=== PATIENT | female | born 1940 | race Caucasian/White ===

== ENCOUNTER 2018-05-28 10:10 | Emergency (ER) | payer MEDICARE, SELFPAY ==
[2018-05-28 10:12] VITALS: BP 161/73; PULSE 69; RESP 17; TEMP 37.3; O2SAT 98; BMI 21.7
[2018-05-28] MEDS: Smz/Tmp Ds Tablet 1 TABLET PO (11:02)
--- NOTE | 2018-05-28 11:09 | ED.VISSUMM ---
- ER Visit Summary Date of Service: 05/28/18 Chief Complaint: [right toe wound] History of Present Illness: The patient is a 78 F [that presents with a chronic wound on her right foot. She states she had an x-ray ordered by her primary doctor 2 days ago. She has an upcoming appointment with a ore charger in 2 days. The wound has been present on her right third digit for about 1 month. She denies any nausea, vomiting, fever, or constitutional symptoms. She has a remote history of MRSA. She overall appears well and nontoxic. She has been doing topical treatment for the wound ordered by wound care and her primary doctor. She has no other complaints.] Physical Examination: [General: The patient appears well and in no apparent distress. Patient is resting comfortably on cart. Skin: Warm, dry, no pallor noted. No rash. Head: Normocephalic, atraumatic Neck: Supple, nontender. Cardiovascular: Regular Rate and Rhythm, no gallups or rubs Respiratory: Patient is in no distress, no accessory muscle use, lungs are clear to auscultation, no wheezing, rales or rhonchi Musculoskeletal: normal ROM, no deformity, no bony tenderness, no swelling. Chronic appearing wound distal right foot third digit with erythema over the dorsal aspect of the digit consistent with cellulitis. No drainage or crepitus. No lymphangitic streaking. 2+ radial and DP pulses symmetric. GI: No tenderness to palpation, no masses appreciated. No rebound, guarding, or rigidity noted. Neurological: A&O, normal strength and sensation. Psychiatric: Cooperative] Test Results: [none] Emergency Department Course and Treatment: [I reviewed her outpatient x-ray that the radiologist interpreted as potential osteolysis. I do not feel blood work or further imaging is indicated here at this time. She has an upcoming podiatry appointment and can be scheduled for an outpatient MRI to evaluate for possible osteomyelitis. She will be placed on a course of Bactrim for the cellulitis and was given a dose of [place] here for pain. She will be written a short prescription for analgesic and antibiotic and we did apply a dressing in postoperative shoe here in the emergency department. She was instructed to return with any new or worsening symptoms. Patient and family understand and are agreeable with this plan of care. Patient was discharged home in stable condition.] Treatment Plan: [see above] Disposition: [discharge home, stable condition] Impression: [Cellulitis right foot 3rd digit with chronic wound] This note was generated with [employer] dictation software. It may contain incorrect words, spelling, and punctuation that were not noted in review of the chart prior to signing ED Disposition - Plan for ED Patient: Disposition: Home or Assisted Living Chief Complaint: Wound Instructions: Recognizing and Treating Wound Infection Prescriptions: Oxycodone HCl/Acetaminophen [Percocet 5/325] 1 tab PO Q6H PRN PRN 3 Days #12 tab PRN Reason: Pain Smz/Tmp Ds [Bactrim Ds] 1 tab PO BID #14 tab Referrals: Waqas Canada MD [Primary Care Provider] - Additional Instructions: Keep your scheduled podiatry appointment.
== END 2018-05-28 11:29 | disposition home or self-care (01) ==
PROVIDERS: Emergency Provider Emergency Medicine; Family Provider Family Medicine; PCP Family Medicine
DX: L03.115 Cellulitis of right lower limb (principal); S91.104A Unspecified open wound of right lesser toe(s) without damage to nail, initial encounter; X58.XXXA Exposure to other specified factors, initial encounter; Y93.9 Activity, unspecified; Y92.9 Unspecified place or not applicable; Y99.9 Unspecified external cause status; I25.10 Atherosclerotic heart disease of native coronary artery without angina pectoris; M16.0 Bilateral primary osteoarthritis of hip; M17.0 Bilateral primary osteoarthritis of knee; Z79.02 Long term (current) use of antithrombotics/antiplatelets; Z79.82 Long term (current) use of aspirin; Z79.899 Other long term (current) drug therapy; I25.2 Old myocardial infarction; Z86.14 Personal history of Methicillin resistant Staphylococcus aureus infection
CPT/HCPCS: 99283

== ENCOUNTER 2018-05-30 15:15 | Outpatient (RCR) | payer MEDICARE, SELFPAY ==
[2018-05-24 10:44] VITALS: BP 190/68; PULSE 60; RESP 18; TEMP 36.7; BMI 21.7
--- NOTE | 2018-05-24 12:41 | PCM.WC.HP ---
(1) Ischemic toe ulcer Status: Acute Current Visit: Yes Code(s): L97.509 - Non-pressure chronic ulcer of other part of unspecified foot with unspecified severity (2) Chronic toe ulcer Status: Chronic Current Visit: Yes Code(s): L97.509 - Non-pressure chronic ulcer of other part of unspecified foot with unspecified severity (3) CAD (coronary artery disease) Status: Chronic Current Visit: Yes Code(s): I25.10 - Atherosclerotic heart disease of [place] coronary artery without angina pectoris (4) Small vessel vasculitis Status: Chronic Current Visit: Yes Code(s): I77.6 - Arteritis, unspecified (5) Small vessel disease Status: Acute Current Visit: Yes Code(s): I99.9 - Unspecified disorder of circulatory system History of Present Illness Date of Service: 05/24/18 Chief Complaint: Bilateral toe ulcers. Discolration of right 3 rd toe. History of Wound: Ms. Hastings is a 78yo with a very complex past medical history who presents to the wound center due to nonhealing to ulcers. Initial ulcer was of the left great toe she has applied Aquacel silver with some improvement however about 3-4 weeks ago she noted an ulcer on the tip of her right third toe. She denies any history of trauma. She also subsequently noted discoloration/darkening of her toe. She describes these ulcers is significantly tender. Recently seen by vascular surgeon and a diagnosis of small vessel disease was made and per patient he had no significant intervention for her. She is status post recent IL and is currently on aspirin and Plavix. She feels well otherwise and denies chills, fever or any drainage from the wound site. Past Medical History Past Medical History: Chronic Problems Chronic toe ulcer (Chronic) CAD (coronary artery disease) (Chronic) Small vessel vasculitis (Chronic) Home Medications: Ambulatory Orders Medication Instructions Recorded Aspirin E.C. [Ecotrin] 81 mg PO DAILY@0800 05/24/18 Bimatoprost [Lumigan] 5 ml OP 05/24/18 Brimonidine 0.15% [Alphagan P 1 drop OPHTHALMIC 05/24/18 0.15%] Carvedilol [Coreg] 3.125 mg PO BID 05/24/18 Clopidogrel Bisulfate [Clopidogrel] 75 mg PO DAILY 05/24/18 Diclofenac Sodium [Voltaren] 2 gm TP 4X/DAY 05/24/18 Famotidine 20 mg PO BID 05/24/18 Hydroxyurea [Hydrea] 1,000 mg PO DAILY 05/24/18 Levothyroxine [Synthroid] 50 mcg PO DAILY 05/24/18 Multivitamin [Daily Multiple 1 each PO 05/24/18 Vitamin] Netarsudil Mesylate [Rhopressa] 2.5 ml OP QHS 05/24/18 Oxycodone HCl/Acetaminophen 1 tablet PO QHS 05/24/18 [Percocet 5/325] Timolol 0.5% [Timoptic] 1 drop OP 05/24/18 Ubidecarenone [Coq10] 50 mg PO 05/24/18 Valsartan/Hydrochlorothiazide 1 tablet PO DAILY 05/24/18 [Diovan Hct 160-12.5 mg Tab] Smoking Status: Never smoker Review of Systems Constitutional: Denies: Anorexia, Chills, Fever, Malaise Eyes: Denies: Redness HEENT: Denies: Difficulty Hearing, Difficulty Swallowing Cardiovascular: Denies: Chest Pain, Chest Tightness Respiratory: Denies: Hemoptysis, Wheezing Gastrointestinal: Denies: Abdominal Pain, Hematemesis, Vomiting Skin: Denies: Jaundice - Physical Exam Vital Signs Temp Pulse Resp BP 98.0 F 60 18 190/68 H 05/24/18 10:44 05/24/18 10:44 05/24/18 10:44 05/24/18 10:44 General: Alert, Oriented x3, Cooperative, No apparent distress HEENT: Atraumatic Oral: Moist Mucosa Neck: Supple Lungs: Normal air movement Cardiovascular: Regular rate Abdomen: Soft Extremities: No cyanosis Skin: Ulcer/ Wound Wound Measurements and Assessment WC - Nurse 1 - General Ulcer Measurement Start: 05/24/18 10:44 Freq: Status: Active Protocol: Activity Type Activity Date Activity User E-Sign Co-Sign Detail Recorded Client Recorded Date Recorded By Document 05/24/18 10:44 ILENE [id number] 05/24/18 11:09 ILENE 05/24/18 10:44 Wound Center Nurse 1 [Ulcer Assessment] 3-Right 3rd toe ulcer -Combined with other wound No -Current Size (cm) - Length 1.0 -Current Size (cm) - Width 1.5 -Current Size (cm) - Depth 0.1 -Total Square Cm 1.50 -Photo Taken Yes -Epithelialization None Present -Tunneling No -Undermining/Tunneling No -Circular Undermining No -Classification - Thickness Unclassifiable (Eschar Covered ) -Exudate Amt None Present (0 %) -Wound Margin Indistinct, Non -Visible -Granulation Amt None Present (0 %) -Slough/Fibrin Yes -Necrosis Amt Large (67-100%) -Necrotic Tissue Type Eschar -Structure Exposed N/A -Texture (Ava-wound Skin Appearance) Assessed -Moisture (Ava-wound Skin Appearance Assessed ) Dry/Scaly -Color (Ava-wound Skin Appearance) Assessed -Temperature (Ava-wound Skin No Abnormality Appearance) (Pt Warm) -Tenderness on Palpation (Ava-wound No Skin Appearance) -Ulcer Cleansing Rinsed/ Irrigated with Saline -Foul Odor after Cleansing No 2-Right medial great toe ulcer -Combined with other wound No -Current Size (cm) - Length 0.3 -Current Size (cm) - Width 0.4 -Current Size (cm) - Depth 0.1 -Total Square Cm 0.12 -Photo Taken Yes -Epithelialization None Present -Tunneling No -Circular Undermining No -Exudate Amt Small (1-33%) -Exudate Type Serosanguineous -Wound Margin Flat & Intact -Granulation Amt None Present (0 %) -Slough/Fibrin Yes -Necrosis Amt Large (67-100%) -Necrotic Tissue Type Adherent Slough -Structure Exposed N/A -Texture (Ava-wound Skin Appearance) Assessed -Moisture (Ava-wound Skin Appearance Assessed ) Dry/Scaly -Color (Ava-wound Skin Appearance) Assessed -Temperature (Ava-wound Skin No Abnormality Appearance) (Pt Warm) -Tenderness on Palpation (Ava-wound No Skin Appearance) -Ulcer Cleansing Rinsed/ Irrigated with Saline -Foul Odor after Cleansing No -Anesthetic Used 4% Lidocaine Solution 1-left great toe ulcer -Combined with other wound No -Current Size (cm) - Length 0.2 -Current Size (cm) - Width 0.5 -Current Size (cm) - Depth 0.1 -Total Square Cm 0.10 -Photo Taken Yes -Epithelialization None Present -Tunneling No -Undermining/Tunneling No -Circular Undermining No -Exudate Amt Small (1-33%) -Exudate Type Serosanguineous -Wound Margin Flat & Intact -Granulation Amt None Present (0 %) -Slough/Fibrin Yes -Necrosis Amt Large (67-100%) -Necrotic Tissue Type Adherent Slough -Structure Exposed N/A -Texture (Ava-wound Skin Appearance) Assessed Localized Edema -Moisture (Ava-wound Skin Appearance Assessed ) Dry/Scaly -Color (Ava-wound Skin Appearance) Assessed -Temperature (Ava-wound Skin No Abnormality Appearance) (Pt Warm) -Tenderness on Palpation (Ava-wound No Skin Appearance) -Ulcer Cleansing Rinsed/ Irrigated with Saline -Foul Odor after Cleansing No -Anesthetic Used 4% Lidocaine Solution [Edema Assessment] -Lower Limb Edema Present No WC - Nurse 2 - General Ulcer CM Notes Start: 05/24/18 10:44 Freq: Status: Active Protocol: Activity Type Activity Date Activity User E-Sign Co-Sign Detail Recorded Client Recorded Date Recorded By Document 05/24/18 11:34 MW [id number] 05/24/18 11:52 MW 05/24/18 11:34 Wound Center Nurse 2 [Procedure/Treatment] 3-Right 3rd toe ulcer -Time 11:37 -Correct Patient Yes -Correct Side, Site, Position Yes -Correct Procedure No -Procedure Performed No -Post Debridement Size (cm) - Length 1.0 -Post Debridement Size (cm) - Width 1.5 -Post Debridement Size (cm) - Depth 0.1 -Total Square Cm 1.50 -Wound/Ulcer Outcome Not Healed -Ulcer Cleansing Rinsed/ Irrigated with Saline -Foul Odor after Cleansing No -Bioengineered Tissue No -Bleeding Controlled with NA -Treatment Response Procedure Tolerated Well 2-Right medial great toe ulcer -Time 11:41 -Correct Patient Yes -Correct Side, Site, Position Yes -Correct Procedure Yes -Procedure Performed Yes -Type of Procedure Debridement -Clinical Debridement Subcutaneous -Post Debridement Size (cm) - Length 0.4 -Post Debridement Size (cm) - Width 0.4 -Post Debridement Size (cm) - Depth 0.1 -Total Square Cm 0.16 -Wound/Ulcer Outcome Not Healed -Ulcer Cleansing Rinsed/ Irrigated with Saline -Foul Odor after Cleansing No -Bioengineered Tissue No -Bleeding Controlled with Pressure -Treatment Response Procedure Tolerated Well 1-left great toe ulcer -Time 11:41 -Correct Patient Yes -Correct Side, Site, Position Yes -Correct Procedure Yes -Procedure Performed Yes -Type of Procedure Debridement -Clinical Debridement Subcutaneous -Post Debridement Size (cm) - Length 0.3 -Post Debridement Size (cm) - Width 0.4 -Post Debridement Size (cm) - Depth 0.1 -Total Square Cm 0.12 -Wound/Ulcer Outcome Not Healed -Ulcer Cleansing Rinsed/ Irrigated with Saline -Foul Odor after Cleansing No -Bioengineered Tissue No -Bleeding Controlled with Pressure -Treatment Response Procedure Tolerated Well [See Physician Procedure note for Specifics] Pain Scale: 0-10 Numeric [Pain] -Is Patient Pain Free? Yes Musculoskeletal: No Muscle Wasting Neurological: Cranial nerves II-XII grossly intact Psych/Mental Status: Normal Affect Debridement Note Post-Debridement Measurements/Treatment WC - Nurse 2 - General Ulcer CM Notes Start: 05/24/18 10:44 Freq: Status: Active Protocol: Activity Type Activity Date Activity User E-Sign Co-Sign Detail Recorded Client Recorded Date Recorded By Document 05/24/18 11:34 MW [id number] 05/24/18 11:52 MW 05/24/18 11:34 Wound Center Nurse 2 3-Right 3rd toe ulcer -Time 11:37 -Correct Patient Yes -Correct Side, Site, Position Yes -Correct Procedure No -Procedure Performed No -Post Debridement Size (cm) - Length 1.0 -Post Debridement Size (cm) - Width 1.5 -Post Debridement Size (cm) - Depth 0.1 -Total Square Cm 1.50 -Wound/Ulcer Outcome Not Healed -Ulcer Cleansing Rinsed/ Irrigated with Saline -Foul Odor after Cleansing No -Bioengineered Tissue No -Bleeding Controlled with NA -Treatment Response Procedure Tolerated Well 2-Right medial great toe ulcer -Time 11:41 -Correct Patient Yes -Correct Side, Site, Position Yes -Correct Procedure Yes -Procedure Performed Yes -Type of Procedure Debridement -Clinical Debridement Subcutaneous -Post Debridement Size (cm) - Length 0.4 -Post Debridement Size (cm) - Width 0.4 -Post Debridement Size (cm) - Depth 0.1 -Total Square Cm 0.16 -Wound/Ulcer Outcome Not Healed -Ulcer Cleansing Rinsed/ Irrigated with Saline -Foul Odor after Cleansing No -Bioengineered Tissue No -Bleeding Controlled with Pressure -Treatment Response Procedure Tolerated Well 1-left great toe ulcer -Time 11:41 -Correct Patient Yes -Correct Side, Site, Position Yes -Correct Procedure Yes -Procedure Performed Yes -Type of Procedure Debridement -Clinical Debridement Subcutaneous -Post Debridement Size (cm) - Length 0.3 -Post Debridement Size (cm) - Width 0.4 -Post Debridement Size (cm) - Depth 0.1 -Total Square Cm 0.12 -Wound/Ulcer Outcome Not Healed -Ulcer Cleansing Rinsed/ Irrigated with Saline -Foul Odor after Cleansing No -Bioengineered Tissue No -Bleeding Controlled with Pressure -Treatment Response Procedure Tolerated Well Pain Scale: 0-10 Numeric Is Patient Pain Free? Yes Wound debrided: Right great toe Wound Grade/Stage: Stage II Type of Debridement: Excisional debridement Anesthesia Used: 4% Lidocaine Solution Depth: Down to and including healthy tissue, in the subcutaneous layer Percentage of wound debrided: 100 Instrument Used: 3mm curette Tissue Removed: Slough and devitalized tissue Severity: Fat Layer Exposed Amount of bleeding with debridement: Mild Bleeding Controlled with: Pressure Patient tolerated procedure well Assessment/Plan Active Problems Ischemic toe ulcer (Acute) Chronic toe ulcer (Chronic) CAD (coronary artery disease) (Chronic) Small vessel vasculitis (Chronic) Small vessel disease (Acute) Assessment: Gangrenous right third toe most likely secondary to small vessel disease. Dual antiplatelet therapy secondary to IL. Left and right great toe ulcers. Plan: Ms. Hastings presents with very concerning right 3rd toe ulcer which has been ongoing for about 3-4 weeks. It appears that she has been seen by other physician however due to other comorbidities there is a dilemma with her care. She has been applying Aquacel extra to all ulcers however right third toe is significantly necrotic and tender. ??? Associated osteomyelitis. X-ray ordered. Apply Santyl daily. Management of her toe ulcers will be better suited by a house detective. Advised to follow-up with Dr. Bee next week however if there is any worsening discoloration and pain she was advised to go to the emergency room. Continue Aquacel extra to left to right great toe ulcers. Labs requested from prior physician/hospitals. ABIs reviewed. Her questions were answered and she was also advised to call with any further questions or concerns. Follow-up with Dr. Bee in 1 week. This note was generated with [employer] software. It may contain incorrect words, spelling, and punctuation that were not noted in checking the note before signing.
--- NOTE | 2018-05-24 12:53 | HP.PCM_ITS ---
(1) Ischemic toe ulcer Status: Acute Current Visit: Yes Code(s): L97.509 - Non-pressure chronic ulcer of other part of unspecified foot with unspecified severity (2) Chronic toe ulcer Status: Chronic Current Visit: Yes Code(s): L97.509 - Non-pressure chronic ulcer of other part of unspecified foot with unspecified severity (3) CAD (coronary artery disease) Status: Chronic Current Visit: Yes Code(s): I25.10 - Atherosclerotic heart disease of [place] coronary artery without angina pectoris (4) Small vessel vasculitis Status: Chronic Current Visit: Yes Code(s): I77.6 - Arteritis, unspecified (5) Small vessel disease Status: Acute Current Visit: Yes Code(s): I99.9 - Unspecified disorder of circulatory system History of Present Illness Date of Service: 05/24/18 Chief Complaint: Bilateral toe ulcers. Discolration of right 3 rd toe. History of Wound: Ms. Hastings is a 78yo with a very complex past medical history who presents to the wound center due to nonhealing to ulcers. Initial ulcer was of the left great toe she has applied Aquacel silver with some improvement however about 3-4 weeks ago she noted an ulcer on the tip of her right third toe. She denies any history of trauma. She also subsequently noted discoloration/darkening of her toe. She describes these ulcers is significantly tender. Recently seen by vascular surgeon and a diagnosis of small vessel disease was made and per patient he had no significant intervention for her. She is status post recent SC and is currently on aspirin and Plavix. She feels well otherwise and denies chills, fever or any drainage from the wound site. Past Medical History Past Medical History: Chronic Problems Chronic toe ulcer (Chronic) CAD (coronary artery disease) (Chronic) Small vessel vasculitis (Chronic) Home Medications: Ambulatory Orders Medication Instructions Recorded Aspirin E.C. [Ecotrin] 81 mg PO DAILY@0800 05/24/18 Bimatoprost [Lumigan] 5 ml OP 05/24/18 Brimonidine 0.15% [Alphagan P 1 drop OPHTHALMIC 05/24/18 0.15%] Carvedilol [Coreg] 3.125 mg PO BID 05/24/18 Clopidogrel Bisulfate [Clopidogrel] 75 mg PO DAILY 05/24/18 Diclofenac Sodium [Voltaren] 2 gm TP 4X/DAY 05/24/18 Famotidine 20 mg PO BID 05/24/18 Hydroxyurea [Hydrea] 1,000 mg PO DAILY 05/24/18 Levothyroxine [Synthroid] 50 mcg PO DAILY 05/24/18 Multivitamin [Daily Multiple 1 each PO 05/24/18 Vitamin] Netarsudil Mesylate [Rhopressa] 2.5 ml OP QHS 05/24/18 Oxycodone HCl/Acetaminophen 1 tablet PO QHS 05/24/18 [Percocet 5/325] Timolol 0.5% [Timoptic] 1 drop OP 05/24/18 Ubidecarenone [Coq10] 50 mg PO 05/24/18 Valsartan/Hydrochlorothiazide 1 tablet PO DAILY 05/24/18 [Diovan Hct 160-12.5 mg Tab] Smoking Status: Never smoker Review of Systems Constitutional: Denies: Anorexia, Chills, Fever, Malaise Eyes: Denies: Redness HEENT: Denies: Difficulty Hearing, Difficulty Swallowing Cardiovascular: Denies: Chest Pain, Chest Tightness Respiratory: Denies: Hemoptysis, Wheezing Gastrointestinal: Denies: Abdominal Pain, Hematemesis, Vomiting Skin: Denies: Jaundice - Physical Exam Vital Signs Temp Pulse Resp BP 98.0 F 60 18 190/68 H 05/24/18 10:44 05/24/18 10:44 05/24/18 10:44 05/24/18 10:44 General: Alert, Oriented x3, Cooperative, No apparent distress HEENT: Atraumatic Oral: Moist Mucosa Neck: Supple Lungs: Normal air movement Cardiovascular: Regular rate Abdomen: Soft Extremities: No cyanosis Skin: Ulcer/ Wound Wound Measurements and Assessment WC - Nurse 1 - General Ulcer Measurement Start: 05/24/18 10:44 Freq: Status: Active Protocol: Activity Type Activity Date Activity User E-Sign Co-Sign Detail Recorded Client Recorded Date Recorded By Document 05/24/18 10:44 ILENE [id number] 05/24/18 11:09 ILENE 05/24/18 10:44 Wound Center Nurse 1 [Ulcer Assessment] 3-Right 3rd toe ulcer -Combined with other wound No -Current Size (cm) - Length 1.0 -Current Size (cm) - Width 1.5 -Current Size (cm) - Depth 0.1 -Total Square Cm 1.50 -Photo Taken Yes -Epithelialization None Present -Tunneling No -Undermining/Tunneling No -Circular Undermining No -Classification - Thickness Unclassifiable (Eschar Covered ) -Exudate Amt None Present (0 %) -Wound Margin Indistinct, Non -Visible -Granulation Amt None Present (0 %) -Slough/Fibrin Yes -Necrosis Amt Large (67-100%) -Necrotic Tissue Type Eschar -Structure Exposed N/A -Texture (Ava-wound Skin Appearance) Assessed -Moisture (Ava-wound Skin Appearance Assessed ) Dry/Scaly -Color (Ava-wound Skin Appearance) Assessed -Temperature (Ava-wound Skin No Abnormality Appearance) (Pt Warm) -Tenderness on Palpation (Ava-wound No Skin Appearance) -Ulcer Cleansing Rinsed/ Irrigated with Saline -Foul Odor after Cleansing No 2-Right medial great toe ulcer -Combined with other wound No -Current Size (cm) - Length 0.3 -Current Size (cm) - Width 0.4 -Current Size (cm) - Depth 0.1 -Total Square Cm 0.12 -Photo Taken Yes -Epithelialization None Present -Tunneling No -Circular Undermining No -Exudate Amt Small (1-33%) -Exudate Type Serosanguineous -Wound Margin Flat & Intact -Granulation Amt None Present (0 %) -Slough/Fibrin Yes -Necrosis Amt Large (67-100%) -Necrotic Tissue Type Adherent Slough -Structure Exposed N/A -Texture (Ava-wound Skin Appearance) Assessed -Moisture (Ava-wound Skin Appearance Assessed ) Dry/Scaly -Color (Ava-wound Skin Appearance) Assessed -Temperature (Ava-wound Skin No Abnormality Appearance) (Pt Warm) -Tenderness on Palpation (Ava-wound No Skin Appearance) -Ulcer Cleansing Rinsed/ Irrigated with Saline -Foul Odor after Cleansing No -Anesthetic Used 4% Lidocaine Solution 1-left great toe ulcer -Combined with other wound No -Current Size (cm) - Length 0.2 -Current Size (cm) - Width 0.5 -Current Size (cm) - Depth 0.1 -Total Square Cm 0.10 -Photo Taken Yes -Epithelialization None Present -Tunneling No -Undermining/Tunneling No -Circular Undermining No -Exudate Amt Small (1-33%) -Exudate Type Serosanguineous -Wound Margin Flat & Intact -Granulation Amt None Present (0 %) -Slough/Fibrin Yes -Necrosis Amt Large (67-100%) -Necrotic Tissue Type Adherent Slough -Structure Exposed N/A -Texture (Ava-wound Skin Appearance) Assessed Localized Edema -Moisture (Ava-wound Skin Appearance Assessed ) Dry/Scaly -Color (Ava-wound Skin Appearance) Assessed -Temperature (Ava-wound Skin No Abnormality Appearance) (Pt Warm) -Tenderness on Palpation (Ava-wound No Skin Appearance) -Ulcer Cleansing Rinsed/ Irrigated with Saline -Foul Odor after Cleansing No -Anesthetic Used 4% Lidocaine Solution [Edema Assessment] -Lower Limb Edema Present No WC - Nurse 2 - General Ulcer CM Notes Start: 05/24/18 10:44 Freq: Status: Active Protocol: Activity Type Activity Date Activity User E-Sign Co-Sign Detail Recorded Client Recorded Date Recorded By Document 05/24/18 11:34 MW [id number] 05/24/18 11:52 MW 05/24/18 11:34 Wound Center Nurse 2 [Procedure/Treatment] 3-Right 3rd toe ulcer -Time 11:37 -Correct Patient Yes -Correct Side, Site, Position Yes -Correct Procedure No -Procedure Performed No -Post Debridement Size (cm) - Length 1.0 -Post Debridement Size (cm) - Width 1.5 -Post Debridement Size (cm) - Depth 0.1 -Total Square Cm 1.50 -Wound/Ulcer Outcome Not Healed -Ulcer Cleansing Rinsed/ Irrigated with Saline -Foul Odor after Cleansing No -Bioengineered Tissue No -Bleeding Controlled with NA -Treatment Response Procedure Tolerated Well 2-Right medial great toe ulcer -Time 11:41 -Correct Patient Yes -Correct Side, Site, Position Yes -Correct Procedure Yes -Procedure Performed Yes -Type of Procedure Debridement -Clinical Debridement Subcutaneous -Post Debridement Size (cm) - Length 0.4 -Post Debridement Size (cm) - Width 0.4 -Post Debridement Size (cm) - Depth 0.1 -Total Square Cm 0.16 -Wound/Ulcer Outcome Not Healed -Ulcer Cleansing Rinsed/ Irrigated with Saline -Foul Odor after Cleansing No -Bioengineered Tissue No -Bleeding Controlled with Pressure -Treatment Response Procedure Tolerated Well 1-left great toe ulcer -Time 11:41 -Correct Patient Yes -Correct Side, Site, Position Yes -Correct Procedure Yes -Procedure Performed Yes -Type of Procedure Debridement -Clinical Debridement Subcutaneous -Post Debridement Size (cm) - Length 0.3 -Post Debridement Size (cm) - Width 0.4 -Post Debridement Size (cm) - Depth 0.1 -Total Square Cm 0.12 -Wound/Ulcer Outcome Not Healed -Ulcer Cleansing Rinsed/ Irrigated with Saline -Foul Odor after Cleansing No -Bioengineered Tissue No -Bleeding Controlled with Pressure -Treatment Response Procedure Tolerated Well [See Physician Procedure note for Specifics] Pain Scale: 0-10 Numeric [Pain] -Is Patient Pain Free? Yes Musculoskeletal: No Muscle Wasting Neurological: Cranial nerves II-XII grossly intact Psych/Mental Status: Normal Affect Debridement Note Post-Debridement Measurements/Treatment WC - Nurse 2 - General Ulcer CM Notes Start: 05/24/18 10:44 Freq: Status: Active Protocol: Activity Type Activity Date Activity User E-Sign Co-Sign Detail Recorded Client Recorded Date Recorded By Document 05/24/18 11:34 MW [id number] 05/24/18 11:52 MW 05/24/18 11:34 Wound Center Nurse 2 3-Right 3rd toe ulcer -Time 11:37 -Correct Patient Yes -Correct Side, Site, Position Yes -Correct Procedure No -Procedure Performed No -Post Debridement Size (cm) - Length 1.0 -Post Debridement Size (cm) - Width 1.5 -Post Debridement Size (cm) - Depth 0.1 -Total Square Cm 1.50 -Wound/Ulcer Outcome Not Healed -Ulcer Cleansing Rinsed/ Irrigated with Saline -Foul Odor after Cleansing No -Bioengineered Tissue No -Bleeding Controlled with NA -Treatment Response Procedure Tolerated Well 2-Right medial great toe ulcer -Time 11:41 -Correct Patient Yes -Correct Side, Site, Position Yes -Correct Procedure Yes -Procedure Performed Yes -Type of Procedure Debridement -Clinical Debridement Subcutaneous -Post Debridement Size (cm) - Length 0.4 -Post Debridement Size (cm) - Width 0.4 -Post Debridement Size (cm) - Depth 0.1 -Total Square Cm 0.16 -Wound/Ulcer Outcome Not Healed -Ulcer Cleansing Rinsed/ Irrigated with Saline -Foul Odor after Cleansing No -Bioengineered Tissue No -Bleeding Controlled with Pressure -Treatment Response Procedure Tolerated Well 1-left great toe ulcer -Time 11:41 -Correct Patient Yes -Correct Side, Site, Position Yes -Correct Procedure Yes -Procedure Performed Yes -Type of Procedure Debridement -Clinical Debridement Subcutaneous -Post Debridement Size (cm) - Length 0.3 -Post Debridement Size (cm) - Width 0.4 -Post Debridement Size (cm) - Depth 0.1 -Total Square Cm 0.12 -Wound/Ulcer Outcome Not Healed -Ulcer Cleansing Rinsed/ Irrigated with Saline -Foul Odor after Cleansing No -Bioengineered Tissue No -Bleeding Controlled with Pressure -Treatment Response Procedure Tolerated Well Pain Scale: 0-10 Numeric Is Patient Pain Free? Yes Wound debrided: Right great toe Wound Grade/Stage: Stage II Type of Debridement: Excisional debridement Anesthesia Used: 4% Lidocaine Solution Depth: Down to and including healthy tissue, in the subcutaneous layer Percentage of wound debrided: 100 Instrument Used: 3mm curette Tissue Removed: Slough and devitalized tissue Severity: Fat Layer Exposed Amount of bleeding with debridement: Mild Bleeding Controlled with: Pressure Patient tolerated procedure well Assessment/Plan Active Problems Ischemic toe ulcer (Acute) Chronic toe ulcer (Chronic) CAD (coronary artery disease) (Chronic) Small vessel vasculitis (Chronic) Small vessel disease (Acute) Assessment: Gangrenous right third toe most likely secondary to small vessel disease. Dual antiplatelet therapy secondary to SC. Left and right great toe ulcers. Plan: Ms. Hastings presents with very concerning right 3rd toe ulcer which has been ongoing for about 3-4 weeks. It appears that she has been seen by other physician however due to other comorbidities there is a dilemma with her care. She has been applying Aquacel extra to all ulcers however right third toe is significantly necrotic and tender. ??? Associated osteomyelitis. X-ray ordered. Apply Santyl daily. Management of her toe ulcers will be better suited by a real estate portfolio manager. Advised to follow-up with Dr. Bee next week however if there is any worsening discoloration and pain she was advised to go to the emergency room. Continue Aquacel extra to left to right great toe ulcers. Labs requested from prior physician/hospitals. ABIs reviewed. Her questions were answered and she was also advised to call with any further questions or concerns. Follow-up with Dr. Bee in 1 week. This note was generated with [employer] software. It may contain incorrect words, spelling, and punctuation that were not noted in checking the note before signing.
[2018-05-30 15:29] VITALS: BP 135/54; PULSE 60; RESP 18; TEMP 36.7; BMI 21.7
--- NOTE | 2018-05-30 17:01 | PCM.WC.PN ---
(1) Ulcer of right foot with fat layer exposed Status: Chronic Current Visit: Yes Code(s): L97.512 - Non-pressure chronic ulcer of other part of right foot with fat layer exposed (2) Chronic ulcer of left foot with fat layer exposed Status: Chronic Current Visit: Yes Code(s): L97.522 - Non-pressure chronic ulcer of other part of left foot with fat layer exposed (3) Hammer toe of right foot Status: Chronic Current Visit: Yes Code(s): M20.41 - Other hammer toe(s) (acquired), right foot (4) Hallux limitus of left foot Status: Chronic Current Visit: Yes Code(s): M20.5X2 - Other deformities of toe(s) (acquired), left foot (5) Osteomyelitis of foot, right, acute Status: Suspected Current Visit: Yes Code(s): M86.171 - Other acute osteomyelitis, right ankle and foot (6) Ischemic toe ulcer Status: Chronic Current Visit: Yes Code(s): L97.509 - Non-pressure chronic ulcer of other part of unspecified foot with unspecified severity (7) Small vessel disease Status: Chronic Current Visit: Yes Code(s): I99.9 - Unspecified disorder of circulatory system (8) Malnutrition Status: Suspected Current Visit: Yes Code(s): E46 - Unspecified protein-calorie malnutrition Type of Wound Date of Service: 06/02/18 Chief Complaint: ulcer right 3 rd toe. Ulcer both great toes History of Wound: Ms. Hastings is a 78 year old with a very complex past medical history who presents to the wound center due to nonhealing to ulcers. She has progressive darkening of the right third toe and was started on Santyl last week by Dr. Zurita. she describes these ulcers is significantly tender. Recently seen by vascular surgeon and a diagnosis of small vessel disease was made and per patient he had no significant intervention for her. She was advised to take Plavix and aspirin. She denies chills, fever, nausea, vomiting, loss of appetite. Her foot pain feels better when she dangles her foot down and she asked that this is okay. She is with her today and she has many questions. Progress of Wound: Stable - Physical Exam Vital Signs Temp Pulse Resp BP 98.0 F 60 18 135/54 H 05/30/18 15:29 05/30/18 15:29 05/30/18 15:29 05/30/18 15:29 General: Alert, Oriented x3, Cooperative Extremities: No cyanosis, No edema, No Calf Tenderness - Negative Anika and Martinez bilateral, Diminished Peripheral Pulses, - - Capillary fill time less than 4 seconds to digits bilateral lower extremities Skin: Ulcer/ Wound - No purulence, erythema, streaking, odor, or eschar formation bilateral. There is bilateral hallux distal ulcers that has a pale granular base with no deep probing or fibrous tissue noted. The distal right third toe ulcer is 100% fibrous line that is moist and upon debridement of the underlying granulation fibrous tissue. There is no probe directly to bone or joint., - - The peripheral skin is hairless and atrophic Wound Measurements and Assessment WC - Nurse 1 - General Ulcer Measurement Start: 05/24/18 10:44 Freq: Status: Active Protocol: Activity Type Activity Date Activity User E-Sign Co-Sign Detail Recorded Client Recorded Date Recorded By Document 05/30/18 15:29 [id number] 05/30/18 15:42 05/30/18 15:29 Wound Center Nurse 1 [Ulcer Assessment] 3-Right 3rd toe ulcer -Combined with other wound No -Current Size (cm) - Length 1.2 -Current Size (cm) - Width 1.7 -Current Size (cm) - Depth 0.1 -Total Square Cm 2.04 -Photo Taken No -Epithelialization Small 1-33% -Tunneling No -Undermining/Tunneling No -Circular Undermining No -Exudate Amt Medium (34-66%) -Exudate Type Serosanguineous -Wound Margin Flat & Intact -Granulation Amt None Present (0 %) -Slough/Fibrin Yes -Necrosis Amt Large (67-100%) -Necrotic Tissue Type Adherent Slough -Structure Exposed N/A -Texture (Ava-wound Skin Appearance) Assessed Localized Edema -Moisture (Ava-wound Skin Appearance Assessed ) Dry/Scaly -Color (Ava-wound Skin Appearance) Assessed -Temperature (Ava-wound Skin No Abnormality Appearance) (Pt Warm) -Tenderness on Palpation (Ava-wound No Skin Appearance) -Ulcer Cleansing Rinsed/ Irrigated with Saline -Foul Odor after Cleansing No -Anesthetic Used 4% Lidocaine Solution 2-Right medial great toe ulcer -Combined with other wound No -Current Size (cm) - Length 0.4 -Current Size (cm) - Width 0.3 -Current Size (cm) - Depth 0.1 -Total Square Cm 0.12 -Photo Taken No -Epithelialization Medium 34-66% -Tunneling No -Undermining/Tunneling No -Circular Undermining No -Exudate Amt None Present (0 %) -Wound Margin Flat & Intact -Granulation Amt Medium (34-66%) -Granulation Quality [place] -Slough/Fibrin Yes -Necrosis Amt Small (1-33%) -Necrotic Tissue Type Adherent Slough -Structure Exposed N/A -Texture (Ava-wound Skin Appearance) Assessed Callus -Moisture (Ava-wound Skin Appearance Assessed ) Dry/Scaly -Color (Ava-wound Skin Appearance) Assessed -Temperature (Ava-wound Skin No Abnormality Appearance) (Pt Warm) -Tenderness on Palpation (Vaa-wound No Skin Appearance) -Ulcer Cleansing Rinsed/ Irrigated with Saline -Foul Odor after Cleansing No -Anesthetic Used 4% Lidocaine Solution 1-left great toe ulcer -Combined with other wound No -Current Size (cm) - Length 0.1 -Current Size (cm) - Width 0.3 -Current Size (cm) - Depth 0.1 -Total Square Cm 0.03 -Photo Taken No -Epithelialization Medium 34-66% -Tunneling No -Undermining/Tunneling No -Circular Undermining No -Exudate Amt Small (1-33%) -Exudate Type Serosanguineous -Wound Margin Flat & Intact -Granulation Amt Small (1-33%) -Granulation Quality [place] -Slough/Fibrin Yes -Necrosis Amt Large (67-100%) -Necrotic Tissue Type Adherent Slough -Structure Exposed N/A -Texture (Ava-wound Skin Appearance) Assessed Callus -Moisture (Ava-wound Skin Appearance Assessed ) Dry/Scaly -Color (Ava-wound Skin Appearance) Assessed -Temperature (Ava-wound Skin No Abnormality Appearance) (Pt Warm) -Tenderness on Palpation (Ava-wound No Skin Appearance) -Ulcer Cleansing Rinsed/ Irrigated with Saline -Foul Odor after Cleansing No -Anesthetic Used 4% Lidocaine Solution [Edema Assessment] -Lower Limb Edema Present No WC - Nurse 2 - General Ulcer CM Notes Start: 05/24/18 10:44 Freq: Status: Active Protocol: Activity Type Activity Date Activity User E-Sign Co-Sign Detail Recorded Client Recorded Date Recorded By Document 05/30/18 16:00 ILENE [id number] 05/30/18 16:11 ILENE 05/30/18 16:00 Wound Center Nurse 2 [Procedure/Treatment] 3-Right 3rd toe ulcer -Time 16:07 -Correct Patient Yes -Correct Side, Site, Position Yes -Correct Procedure Yes -Procedure Performed Yes -Type of Procedure Debridement -Clinical Debridement Subcutaneous -Post Debridement Size (cm) - Length 1.2 -Post Debridement Size (cm) - Width 1.7 -Post Debridement Size (cm) - Depth 0.2 -Total Square Cm 2.04 -Wound/Ulcer Outcome Not Healed -Ulcer Cleansing Rinsed/ Irrigated with Saline -Foul Odor after Cleansing No -Bioengineered Tissue No -Bleeding Controlled with Pressure -Treatment Response Procedure Tolerated Well 2-Right medial great toe ulcer -Time 16:08 -Correct Patient Yes -Correct Side, Site, Position Yes -Correct Procedure Yes -Procedure Performed Yes -Type of Procedure Debridement -Clinical Debridement Subcutaneous -Post Debridement Size (cm) - Length 0.4 -Post Debridement Size (cm) - Width 0.4 -Post Debridement Size (cm) - Depth 0.1 -Total Square Cm 0.16 -Wound/Ulcer Outcome Not Healed -Ulcer Cleansing Rinsed/ Irrigated with Saline -Foul Odor after Cleansing No -Bioengineered Tissue No -Bleeding Controlled with Pressure -Treatment Response Procedure Tolerated Well 1-left great toe ulcer -Time 16:08 -Correct Patient Yes -Correct Side, Site, Position Yes -Correct Procedure Yes -Procedure Performed Yes -Type of Procedure Debridement -Clinical Debridement Subcutaneous -Post Debridement Size (cm) - Length 0.2 -Post Debridement Size (cm) - Width 0.3 -Post Debridement Size (cm) - Depth 0.1 -Total Square Cm 0.06 -Wound/Ulcer Outcome Not Healed -Ulcer Cleansing Rinsed/ Irrigated with Saline -Foul Odor after Cleansing No -Bioengineered Tissue No -Bleeding Controlled with Pressure -Treatment Response Procedure Tolerated Well [See Physician Procedure note for Specifics] Pain Scale: 0-10 Numeric [Pain] -Is Patient Pain Free? Yes Musculoskeletal: - - Dorsal contraction of lesser digits noted Neurological: Sensory exam intact to light touch and pain Psych/Mental Status: Normal Affect, Appropriate Debridement Note Post-Debridement Measurements/Treatment WC - Nurse 2 - General Ulcer CM Notes Start: 05/24/18 10:44 Freq: Status: Active Protocol: Activity Type Activity Date Activity User E-Sign Co-Sign Detail Recorded Client Recorded Date Recorded By Document 05/24/18 11:34 MW [id number] 05/24/18 11:52 MW Document 05/30/18 16:00 [id number] 05/30/18 16:11 JF 05/24/18 05/30/18 11:34 16:00 Wound Center Nurse 2 3-Right 3rd toe ulcer -Time 11:37 16:07 -Correct Patient Yes Yes -Correct Side, Site, Position Yes Yes -Correct Procedure No Yes -Procedure Performed No Yes -Type of Procedure Debridement -Clinical Debridement Subcutaneous -Post Debridement Size (cm) - Length 1.0 1.2 -Post Debridement Size (cm) - Width 1.5 1.7 -Post Debridement Size (cm) - Depth 0.1 0.2 -Total Square Cm 1.50 2.04 -Wound/Ulcer Outcome Not Healed Not Healed -Ulcer Cleansing Rinsed/ Rinsed/ Irrigated with Irrigated with Saline Saline -Foul Odor after Cleansing No No -Bioengineered Tissue No No -Bleeding Controlled with NA Pressure -Treatment Response Procedure Procedure Tolerated Well Tolerated Well 2-Right medial great toe ulcer -Time 11:41 16:08 -Correct Patient Yes Yes -Correct Side, Site, Position Yes Yes -Correct Procedure Yes Yes -Procedure Performed Yes Yes -Type of Procedure Debridement Debridement -Clinical Debridement Subcutaneous Subcutaneous -Post Debridement Size (cm) - Length 0.4 0.4 -Post Debridement Size (cm) - Width 0.4 0.4 -Post Debridement Size (cm) - Depth 0.1 0.1 -Total Square Cm 0.16 0.16 -Wound/Ulcer Outcome Not Healed Not Healed -Ulcer Cleansing Rinsed/ Rinsed/ Irrigated with Irrigated with Saline Saline -Foul Odor after Cleansing No No -Bioengineered Tissue No No -Bleeding Controlled with Pressure Pressure -Treatment Response Procedure Procedure Tolerated Well Tolerated Well 1-left great toe ulcer -Time 11:41 16:08 -Correct Patient Yes Yes -Correct Side, Site, Position Yes Yes -Correct Procedure Yes Yes -Procedure Performed Yes Yes -Type of Procedure Debridement Debridement -Clinical Debridement Subcutaneous Subcutaneous -Post Debridement Size (cm) - Length 0.3 0.2 -Post Debridement Size (cm) - Width 0.4 0.3 -Post Debridement Size (cm) - Depth 0.1 0.1 -Total Square Cm 0.12 0.06 -Wound/Ulcer Outcome Not Healed Not Healed -Ulcer Cleansing Rinsed/ Rinsed/ Irrigated with Irrigated with Saline Saline -Foul Odor after Cleansing No No -Bioengineered Tissue No No -Bleeding Controlled with Pressure Pressure -Treatment Response Procedure Procedure Tolerated Well Tolerated Well Pain Scale: 0-10 Numeric Is Patient Pain Free? Yes Yes Wound debrided: hallux Laterality: Right Type of Debridement: Excisional debridement Anesthesia Used: 4% Lidocaine Solution Depth: in the subcutaneous layer Percentage of wound debrided: 100 Instrument Used: #15 blade Tissue Removed: fibrous, devitalized subcutaneous, biofilm, slough Severity: Fat Layer Exposed Amount of bleeding with debridement: Mild Bleeding Controlled with: Pressure Patient tolerated procedure well - Additional Wound Wound debrided: hallux Laterality: Left Type of Debridement: Excisional debridement Anesthesia Used: 4% Lidocaine Solution Depth: in the subcutaneous layer Percentage of wound debrided: 100 Instrument Used: #15 blade Tissue Removed: fibrous, devitalized subcutaneous, biofilm, slough Severity: Fat Layer Exposed Amount of bleeding with debridement: Mild Bleeding Controlled with: Pressure Patient tolerated procedure: Patient tolerated procedure well - Additional Wound Wound debrided: distal 3rd toe Laterality: Right Type of Debridement: Excisional debridement Anesthesia Used: 4% Lidocaine Solution Depth: in the subcutaneous layer Percentage of wound debrided: 100 Instrument Used: #15 blade, Forceps Tissue Removed: fibrous, devitalized subcutaneous, biofilm, slough Severity: Limited To Skin Breakdown Amount of bleeding with debridement: Mild Bleeding Controlled with: Pressure Patient tolerated procedure: Patient tolerated procedure well Assessment/Plan Clinical Impression(s) from Imaging Studies Foot X-Ray 05/24/18 12:41 IMPRESSION: 1. Apparent osteolysis of the distal phalanx of the third toe. This could be secondary to osteomyelitis. 2. Osteoporosis. 3. Calcaneal spurs. 4. 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 Electronically Signed: Thu Lopez MD at 13:04 EDT , Service support , Active Problems Ischemic toe ulcer (Chronic) Chronic toe ulcer (Chronic) CAD (coronary artery disease) (Chronic) Small vessel vasculitis (Chronic) Small vessel disease (Chronic) Ulcer of right foot with fat layer exposed (Chronic) Chronic ulcer of left foot with fat layer exposed (Chronic) Hammer toe of right foot (Chronic) Hallux limitus of left foot (Chronic) Assessment: Gangrenous right third toe pulp most likely secondary to small vessel disease-cellulitis resolving. Dual antiplatelet therapy secondary to NE. Left and right great toe ulcers, fat layer exposed no infection Plan: Ms. Hastings presents with very concerning right 3rd toe ulcer which has been ongoing for about 3-4 weeks. It appears that she has been seen by other physician however due to other comorbidities there is a dilemma with her care. She has been applying Aquacel extra to all ulcers however right third toe is significantly necrotic and tender. There is concern of osteomyelitis. X-ray ordered previously and reviewed today as a following: There is no soft tissue emphysema or foreign body or acute fracture dislocation, there is ostial lysis of the distal third phalanx however this finding is also noted on some of the adjacent distal phalanges. Bone infection formation is certainly a possible scenario however based on this x-ray finding alone this cannot be confirmed. She did well with Santyl last week and I recommend she continues to apply Santyl daily. To continue Aquacel extra to left to right great toe ulcers. Labs requested from prior physician/hospitals. ABIs reviewed. The debrided right third toe fibrous plug was sent to microbiology she will be called with the results later this week or over the weekend when he finalized. She was already started on Bactrim by different physician she is advised to continue this unless she develops side effects. It is noted that her previous infectious disease doctor was Dr. Pandey. I recommend she offload the ulcer site in an improved manner. She already has a surgical shoe for the right foot and I added felt offloading liners. An additional surgical shoe with offloading felt liner was fitted and dispensed today for the left lower extremity as well. I advised her to bear weight on her heels. Due to the lack of small vessel perfusion I also recommend she focuses on dangling her foot this will help with perfusion as well as pain control. To avoid soaking the foot. I also recommend nutritional supplementation optimize healing; Brad was recommended. To return to the wound healing center 1 week or call sooner if she has any questions or concerns. Her questions were answered.
[2018-05-30 19:13] LABS: M R Staph aureus DNA By PCR Negative (Negative); Probe Check PASS; Specimen Processing Control PASS; Staph aureus DNA By PCR NEGATIVE (Negative)
== END 2018-06-17 23:59 ==
LOC: WC 15:15
PROVIDERS: Family Provider Family Medicine; PCP Family Medicine; Visit Provider Podiatrist
DX: L97.512 Non-pressure chronic ulcer of other part of right foot with fat layer exposed (principal); I25.10 Atherosclerotic heart disease of native coronary artery without angina pectoris; I25.2 Old myocardial infarction; L97.522 Non-pressure chronic ulcer of other part of left foot with fat layer exposed; M20.41 Other hammer toe(s) (acquired), right foot; M20.5X2 Other deformities of toe(s) (acquired), left foot
CPT/HCPCS: 11042; 73630; 87070; 87075; 87077; 87186; 87205; 87640; 97602; 99203; G0463

== ENCOUNTER 2018-06-27 13:45 | Outpatient (RCR) | payer SELFPAY ==
[2018-06-18 01:33] VITALS: BP 135/54; PULSE 60; RESP 18; TEMP 36.7
[2018-06-20 15:19] VITALS: BP 161/78; PULSE 66; RESP 16; TEMP 36.4
--- NOTE | 2018-06-20 17:08 | PCM.WC.PN ---
(1) Small vessel disease Status: Chronic Code(s): I99.9 - Unspecified disorder of circulatory system (2) Ulcer of right foot with fat layer exposed Status: Chronic Code(s): L97.512 - Non-pressure chronic ulcer of other part of right foot with fat layer exposed (3) Chronic ulcer of left foot with fat layer exposed Status: Chronic Code(s): L97.522 - Non-pressure chronic ulcer of other part of left foot with fat layer exposed (4) Hammer toe of right foot Status: Chronic Code(s): M20.41 - Other hammer toe(s) (acquired), right foot (5) Hallux limitus of left foot Status: Chronic Code(s): M20.5X2 - Other deformities of toe(s) (acquired), left foot (6) Malnutrition Status: Suspected Code(s): E46 - Unspecified protein-calorie malnutrition Type of Wound Date of Service: 06/20/18 Chief Complaint: ulcer right 3 rd toe. Ulcer both great toes History of Wound: Ms. Hastings is a 78 year old with a very complex past medical history who presents to the wound center due to nonhealing to ulcers. She has progressive darkening of the right third toe and was started on Santyl last week by Dr. Zurita. she describes these ulcers is significantly tender. Comination cream including nifedipine has provided relief. Recently seen by vascular surgeon and a diagnosis of small vessel disease was made and there is a planned / scheduled angioplasty with potential stenting. She was advised to take Plavix and aspirin. She denies chills, fever, nausea, vomiting, loss of appetite. Her foot pain feels better when she dangles her foot down and she asked that this is okay. She is with her today and she has many questions. Progress of Wound: Stable - Physical Exam Vital Signs Temp Pulse Resp BP 97.5 F L 66 16 161/78 H 06/20/18 15:19 06/20/18 15:19 06/20/18 15:19 06/20/18 15:19 General: Alert, Oriented x3, Cooperative Extremities: No edema, No Calf Tenderness - negative beronica and knowles bilateral, Diminished Peripheral Pulses, - - capillary fill delayed < 4 seconds to all toes. adjacent skin hairless and atrophic Skin: Ulcer/ Wound - no purulence, no streaking, no erythema, no exposed bone. fibrous necrotic plug decreased in size to distal right toe tip Wound Measurements and Assessment WC - Nurse 1 - General Ulcer Measurement Start: 06/20/18 15:19 Freq: Status: Active Protocol: Activity Type Activity Date Activity User E-Sign Co-Sign Detail Recorded Client Recorded Date Recorded By Document 06/20/18 15:19 [facility] [id number] 06/20/18 15:32 [facility] 06/20/18 15:19 Wound Center Nurse 1 [Ulcer Assessment] 3-Right 3rd toe ulcer -Combined with other wound No -Current Size (cm) - Length 1.7 -Current Size (cm) - Width 1.7 -Current Size (cm) - Depth 0.1 -Total Square Cm 2.89 -Photo Taken No -Epithelialization None Present -Undermining/Tunneling No -Circular Undermining No -Classification - Thickness Full Thickness without Exposed Support Structure -Exudate Amt None Present (0 %) -Wound Margin Indistinct, Non -Visible -Granulation Amt None Present (0 %) -Granulation Quality N/A -Slough/Fibrin Yes -Necrosis Amt Large (67-100%) -Necrotic Tissue Type Eschar -Structure Exposed N/A -Texture (Ava-wound Skin Appearance) No Abnormality Assessed -Moisture (Ava-wound Skin Appearance No Abnormality ) Assessed -Color (Ava-wound Skin Appearance) No Abnormality Assessed -Temperature (Ava-wound Skin No Abnormality Appearance) (Pt Warm) -Tenderness on Palpation (Ava-wound No Skin Appearance) -Ulcer Cleansing Rinsed/ Irrigated with Saline -Foul Odor after Cleansing No -Anesthetic Used 5% Lidocaine Gel 2-Right medial great toe ulcer -Combined with other wound No -Current Size (cm) - Length 0.1 -Current Size (cm) - Width 0.1 -Current Size (cm) - Depth 0.1 -Total Square Cm 0.01 -Photo Taken No -Epithelialization Small 1-33% -Tunneling No -Undermining/Tunneling No -Circular Undermining No -Classification - Thickness Full Thickness without Exposed Support Structure -Change in Wound Grade/Stage No Query Text:If change please identify the Stage/Grade in the comment (ie. S2 G3) -Exudate Amt None Present (0 %) -Granulation Amt None Present (0 %) -Granulation Quality N/A -Slough/Fibrin No -Necrosis Amt Large (67-100%) -Necrotic Tissue Type Adherent Slough -Structure Exposed None/Limited to Skin Breakdown -Texture (Ava-wound Skin Appearance) No Abnormality Assessed -Color (Ava-wound Skin Appearance) No Abnormality Assessed -Temperature (Ava-wound Skin No Abnormality Appearance) (Pt Warm) -Tenderness on Palpation (Ava-wound No Skin Appearance) -Ulcer Cleansing Rinsed/ Irrigated with Saline -Foul Odor after Cleansing No -Anesthetic Used 4% Lidocaine Solution 1-left great toe ulcer -Combined with other wound No -Current Size (cm) - Length 0.1 -Current Size (cm) - Width 0.1 -Current Size (cm) - Depth 0.1 -Total Square Cm 0.01 -Photo Taken No -Epithelialization None Present -Undermining/Tunneling No -Circular Undermining No -Classification - Thickness Full Thickness without Exposed Support Structure -Change in Wound Grade/Stage No Query Text:If change please identify the Stage/Grade in the comment (ie. S2 G3) -Exudate Amt None Present (0 %) -Wound Margin Distinct, Outline Attached -Granulation Amt None Present (0 %) -Granulation Quality N/A -Slough/Fibrin Yes -Necrosis Amt Large (67-100%) -Necrotic Tissue Type Eschar -Structure Exposed None/Limited to Skin Breakdown -Texture (Ava-wound Skin Appearance) No Abnormality Assessed -Moisture (Ava-wound Skin Appearance No Abnormality ) Assessed -Color (Ava-wound Skin Appearance) No Abnormality Assessed -Temperature (Ava-wound Skin No Abnormality Appearance) (Pt Warm) -Ulcer Cleansing Rinsed/ Irrigated with Saline -Foul Odor after Cleansing No -Anesthetic Used 4% Lidocaine Solution [Edema Assessment] -Lower Limb Edema Present No WC - Nurse 2 - General Ulcer CM Notes Start: 06/20/18 15:19 Freq: Status: Active Protocol: Activity Type Activity Date Activity User E-Sign Co-Sign Detail Recorded Client Recorded Date Recorded By Document 06/20/18 15:40 [id number] 06/20/18 15:42 06/20/18 15:40 Wound Center Nurse 2 [Procedure/Treatment] 3-Right 3rd toe ulcer -Time 15:40 -Correct Patient Yes -Correct Side, Site, Position Yes -Correct Procedure Yes -Procedure Performed Yes -Post Debridement Size (cm) - Length 1.7 -Post Debridement Size (cm) - Width 1.7 -Post Debridement Size (cm) - Depth 0.1 -Total Square Cm 2.89 -Wound/Ulcer Outcome Not Healed -Ulcer Cleansing Rinsed/ Irrigated with Saline -Foul Odor after Cleansing No -Bioengineered Tissue No -Topical Lidocaine (%) 5 -Bleeding Controlled with Pressure -Treatment Response Procedure Tolerated Well 2-Right medial great toe ulcer -Time 15:41 -Correct Patient Yes -Correct Side, Site, Position Yes -Correct Procedure Yes -Procedure Performed Yes -Post Debridement Size (cm) - Length 0.1 -Post Debridement Size (cm) - Width 0.1 -Post Debridement Size (cm) - Depth 0.1 -Total Square Cm 0.01 -Wound/Ulcer Outcome Not Healed -Ulcer Cleansing Rinsed/ Irrigated with Saline -Foul Odor after Cleansing No -Bioengineered Tissue No -Topical Lidocaine (%) 5 -Bleeding Controlled with Pressure -Treatment Response Procedure Tolerated Well 1-left great toe ulcer -Time 15:41 -Correct Patient Yes -Correct Side, Site, Position Yes -Correct Procedure Yes -Procedure Performed Yes -Post Debridement Size (cm) - Length 0.1 -Post Debridement Size (cm) - Width 0.1 -Post Debridement Size (cm) - Depth 0.1 -Total Square Cm 0.01 -Wound/Ulcer Outcome Not Healed -Ulcer Cleansing Rinsed/ Irrigated with Saline -Foul Odor after Cleansing No -Bioengineered Tissue No -Topical Lidocaine (%) 5 -Bleeding Controlled with Pressure -Treatment Response Procedure Tolerated Well [See Physician Procedure note for Specifics] Pain Scale: 0-10 Numeric [Pain] -Is Patient Pain Free? Yes Musculoskeletal: No Tenderness to Palpation of Joints or Extremities, Muscle Wasting, - - dorsal contraction of digits Neurological: Sensory exam intact to light touch and pain - hypersensative Psych/Mental Status: Normal Affect, Appropriate, Agitated, Anxious Debridement Note Post-Debridement Measurements/Treatment WC - Nurse 2 - General Ulcer CM Notes Start: 06/20/18 15:19 Freq: Status: Active Protocol: Activity Type Activity Date Activity User E-Sign Co-Sign Detail Recorded Client Recorded Date Recorded By Document 06/20/18 15:40 [id number] 06/20/18 15:42 06/20/18 15:40 Wound Center Nurse 2 3-Right 3rd toe ulcer -Time 15:40 -Correct Patient Yes -Correct Side, Site, Position Yes -Correct Procedure Yes -Procedure Performed Yes -Post Debridement Size (cm) - Length 1.7 -Post Debridement Size (cm) - Width 1.7 -Post Debridement Size (cm) - Depth 0.1 -Total Square Cm 2.89 -Wound/Ulcer Outcome Not Healed -Ulcer Cleansing Rinsed/ Irrigated with Saline -Foul Odor after Cleansing No -Bioengineered Tissue No -Topical Lidocaine (%) 5 -Bleeding Controlled with Pressure -Treatment Response Procedure Tolerated Well 2-Right medial great toe ulcer -Time 15:41 -Correct Patient Yes -Correct Side, Site, Position Yes -Correct Procedure Yes -Procedure Performed Yes -Post Debridement Size (cm) - Length 0.1 -Post Debridement Size (cm) - Width 0.1 -Post Debridement Size (cm) - Depth 0.1 -Total Square Cm 0.01 -Wound/Ulcer Outcome Not Healed -Ulcer Cleansing Rinsed/ Irrigated with Saline -Foul Odor after Cleansing No -Bioengineered Tissue No -Topical Lidocaine (%) 5 -Bleeding Controlled with Pressure -Treatment Response Procedure Tolerated Well 1-left great toe ulcer -Time 15:41 -Correct Patient Yes -Correct Side, Site, Position Yes -Correct Procedure Yes -Procedure Performed Yes -Post Debridement Size (cm) - Length 0.1 -Post Debridement Size (cm) - Width 0.1 -Post Debridement Size (cm) - Depth 0.1 -Total Square Cm 0.01 -Wound/Ulcer Outcome Not Healed -Ulcer Cleansing Rinsed/ Irrigated with Saline -Foul Odor after Cleansing No -Bioengineered Tissue No -Topical Lidocaine (%) 5 -Bleeding Controlled with Pressure -Treatment Response Procedure Tolerated Well Pain Scale: 0-10 Numeric Is Patient Pain Free? Yes Wound debrided: hallux (right and left) and right 3rd toe No debridement was completed today - no tolerated; refused Assessment/Plan Assessment: Gangrenous right third toe pulp most likely secondary to small vessel disease-cellulitis resolving. peripheral vascular disease. bilateral hammer toes. bilateral hallux ulcers with fat exposed, no acute infection today. Dual antiplatelet therapy secondary to SD. Plan: Ms. Hastings presents with very concerning right 3rd toe ulcer which has been ongoing. Debridement was not performed today. X-ray ordered previously and reviewed today as a following: There is no soft tissue emphysema or foreign body or acute fracture dislocation, there is osteolysis of the distal third phalanx however this finding is also noted on some of the adjacent distal phalanges. Bone infection formation is certainly a possible scenario however based on this x-ray finding alone this cannot be confirmed. She did well with Santyl last week and I recommend she continues to apply Santyl daily. To continue Aquacel extra to left to right great toe ulcers. Labs requested from prior physician/hospitals. ABIs reviewed. The debrided right third toe fibrous plug was previously sent to microbiology. She was already started on Bactrim by different physician she is advised to continue this unless she develops side effects. Additional antibiotics are note recommended. It is noted that her previous infectious disease doctor was Dr. Pandey. I recommend she offload the ulcer site in an improved manner. She already has a surgical shoe for the right foot and I added felt offloading liners. I advised her to bear weight on her heels. Due to the lack of small vessel perfusion I also recommend she focuses on dangling her foot this will help with perfusion as well as pain control. A nifedipine cream was prescribed and she was advised on safe periulcer / toe application. To wear gloves and use sparingly to avoid cardiac side effects. To proceed with vascular surgery procedure on June 28 as scheduled. To avoid soaking the foot. I also recommend nutritional supplementation optimize healing; Brad was recommended. To return to the wound healing center 1 week or call sooner if she has any questions or concerns. Her questions were answered. I answered her 's questions as well.
== END 2018-07-18 23:59 ==
LOC: WC 13:45
PROVIDERS: Family Provider Family Medicine; PCP Family Medicine; Referring Provider Internal Medicine; Visit Provider Podiatrist
DX: I73.9 Peripheral vascular disease, unspecified (principal); L97.512 Non-pressure chronic ulcer of other part of right foot with fat layer exposed; L97.522 Non-pressure chronic ulcer of other part of left foot with fat layer exposed; M20.41 Other hammer toe(s) (acquired), right foot; M20.5X2 Other deformities of toe(s) (acquired), left foot; R09.89 Other specified symptoms and signs involving the circulatory and respiratory systems
CPT/HCPCS: 97602; 99214; G0463